=== PATIENT | female | born 1940 | race Caucasian/White ===

== ENCOUNTER 2018-05-21 11:18 | Emergency (ER) | payer OTHER ==
[2018-05-21] MEDS ORDERED: SODIUM CHLORIDE 0.9% 1L BAG IV* (11:26)
[2018-05-21 12:04] LABS: ADD MAN DIFF? NO
[2018-05-21 12:09] LABS: BASOPHILS % 0.3 % (0.0-2.0); EOSINOPHILS # 0.1 10^3/ul (0.0-0.5); EOSINOPHILS % 1.1 % (0.0-7.0); HEMATOCRIT 30.2 % (37.0-47.0); HEMOGLOBIN 9.6 g/dl (12.0-16.0); LYMPHOCYTES # 1.3 10^3/ul (0.8-2.9); LYMPHOCYTES % 10.7 % (15.0-51.0); MEAN CORPUSCULAR HEMOGLOBIN 30.7 pg (29.0-33.0); MEAN CORPUSCULAR HGB CONC 31.8 g/dl (32.0-37.0); MEAN CORPUSCULAR VOLUME 96.5 fl (82.0-101.0); MONOCYTE # 1.2 10^3/ul (0.3-0.9); MONOCYTES % 10.6 % (0.0-11.0); NEUTROPHILS % 76.7 % (39.0-77.0); PLATELET COUNT 190 10^3/UL (140-415); RED BLOOD COUNT 3.13 10^6/ul (4.20-5.40); RED CELL DISTRIBUTION WIDTH 12.6 % (11.5-14.5)
[2018-05-21 12:09] LABS: WHITE BLOOD COUNT 11.7 10^3/ul (4.8-10.8)
[2018-05-21 12:28] LABS: ANION GAP 11 (5-13); BLOOD UREA NITROGEN 34 mg/dl (7-20); CARBON DIOXIDE 37 mmol/L (21-31); CHLORIDE 88 mmol/L (97-110); CREATININE 7.03 mg/dl (0.44-1.00); GLUCOSE 188 mg/dl (70-220); POTASSIUM 4.6 mmol/L (3.5-5.1); SODIUM 136 mmol/L (135-144)
[2018-05-21 12:31] LABS: DIGOXIN 1.1 ng/ml (1.0-2.0)
[2018-05-21 12:33] LABS: INR 1.16; PROTIME 14.9 Sec (11.9-14.9); PT RATIO 1.2
[2018-05-21 12:34] LABS: PARTIAL THROMBOPLASTIN TIME 36.5 Sec (23.0-35.0)
[2018-05-21] MEDS: CEFEPIME 2GM/50 ML (PMX) 50 ML IVPB (12:52)
[2018-05-21] MEDS ORDERED: VANCOMYCIN 1 GM (PMX) 250 ML IVPB (13:00)
== END 2018-05-21 14:00 | disposition short-term general hospital (02) ==
LOC: E/R 11:18
DX: J18.9 Pneumonia, unspecified organism (principal); R65.20 Severe sepsis without septic shock; A41.9 Sepsis, unspecified organism; J45.909 Unspecified asthma, uncomplicated; I10 Essential (primary) hypertension; E11.9 Type 2 diabetes mellitus without complications; Z79.01 Long term (current) use of anticoagulants
CPT/HCPCS: 36415; 71045; 80048; 80162; 83605; 84484; 85025; 85610; 85730; 87040; 87400; 93005; 96374; 99291-25